=== PATIENT | male | born 1990 | race Caucasian/White ===

== ENCOUNTER 2016-05-28 10:17 | Emergency (ER) | payer BC ==
[2016-05-28 10:43] VITALS: BP 153/98
--- NOTE | 2016-05-28 11:25 | UC ---
Dizzy HPI HPI Summary: 2 NEAR SYNCOPAL EPISODES - 05/15/16 AND 05/26/16. NO PRECEDING INCIDENT OR CLEAR TRIGGERING EVENT. ON BOTH OCCASIONS PT WAS OUTSIDE GETTING INTO HIS CAR TO GO TO WORK IN THE EVENING. ALL OF A SUDDEN PT FELT LIGHTHEADED, FLUSHED/WARM, VISION WENT BLURRY AND HE HAD TO SIT DOWN AGAINST HIS CAR. NO ACTUAL LOC. NO HEAD INJURY. HEART WAS BEATING FAST. HAD SOME MILD URI SX DURING THE FIRST EPISODE BUT NOT FOR THE SECOND. TODAY FEELS WELL. COULD NOT GET APPT WITH PCP. - History Of Current Complaint Chief Complaint: UCGeneralIllness Stated Complaint: HEAD PRESSURE Time Seen by Provider: 05/28/16 11:11 Hx Obtained From: Patient Onset/Duration: Sudden Onset, Lasting Minutes, Resolved Severity Initially: Moderate Severity Currently: None Pain Intensity: 0 Pain Scale Used: 0-10 Numeric Character: Dizzy Aggravating Factor(s): Nothing Associated Signs And Symptoms: Positive: Palpitations, Unsteady Gait, Visual Changes - Allergies/Home Medications Allergies/Adverse Reactions: Allergies Allergy/AdvReac Type Severity Reaction Status Date / Time No Known Allergies Allergy Verified 05/28/16 10:35 Home Medications: Home Medications Cetirizine* [ZyrTEC*] 10 mg PO DAILY 05/28/16 [History Confirmed 05/28/16] PMH/Surg Hx/FS Hx/Imm Hx Previously Healthy: Yes Endocrine History Of: Denies: Diabetes, Thyroid Disease Cardiovascular History Of: Denies: Cardiac Disorders, Hypertension Respiratory History Of: Denies: COPD, Asthma GI/ History Of: Denies: Ulcer - Surgical History Surgical History: Yes Surgery Procedure, Year, and Place: Jaw Implant 2014; T/A as child - Family History Known Family History: Positive: None Negative: Hypertension Family History: no cardio-vascular issues in family lineage - Social History Alcohol Use: Occasionally Substance Use Type: None Smoking Status (MU): Never Smoked Tobacco - Immunization History Most Recent Influenza Vaccination: Not UTD Most Recent Tetanus Shot: UNSURE OF Review of Systems Constitutional: Negative Eyes: Blurred Vision ENT: Negative Respiratory: Negative Cardiovascular: Negative Neurovascular: Other - DIZZY All Other Systems Reviewed And Are Negative: Yes Physical Exam Triage Information Reviewed: Yes Appearance: Well-Appearing, No Pain Distress, Well-Nourished Vital Signs: Initial Vital Signs Temp 99.1 F 05/28/16 10:36 Pulse 89 05/28/16 10:36 Resp 16 05/28/16 10:36 BP 153/98 05/28/16 10:36 Pulse Ox 100 05/28/16 10:36 Vital Signs Reviewed: Yes Eyes: Positive: Conjunctiva Clear ENT: Positive: Hearing grossly normal, Pharynx normal, Other: - RIGHT TM NORMAL. LEFT TM OBSTRUCTED BY CERUMEN Neck: Positive: Supple, Nontender, No Lymphadenopathy Respiratory Exam: Normal Cardiovascular Exam: Normal Abdomen Description: Positive: Soft Musculoskeletal: Positive: No Edema Neurological: Positive: Alert Psychological: Positive: Age Appropriate Behavior Skin: Negative: rashes Diagnostics - EKG Cardiac Rate: NL - 63 BPM Cardiac Rhythm: Sinus: Normal Ectopy: None ST Segment: Normal Dizzy Course/Dx - Course Course Of Treatment: AFTER IRRIGATION OF LEFT EAR, SLIGHT BLOODY OOZING FROM POSTERIOR EAC WALL. TM APPEARS IRREGULAR BUT INTACT. - Differential Dx/Diagnosis Provider Diagnoses: 1. NEAR SYNCOPE. 2. LEFT OTITIS EXTERNA Discharge - Discharge Plan Condition: Stable Disposition: HOME Prescriptions: Neomyc/Polym/HC 1% OTIC SUSP* [Cortisporin Otic Susp 1%*] 4 drop LEFT EAR TID # 1 btl Patient Education Materials: Otitis Externa (ED), Near Syncope (ED) Forms: *Work Release Referrals: Yeni Singh MD [Medical Doctor] - 5 Days Additional Instructions: FOLLOW-UP WITH DR. SINGH FOR A WORK-UP OF YOUR PRESYNCOPAL EPISODES. YOU WILL LIKELY NEED LAB WORK AND STUDIES SUCH AN ECHOCARDIOGRAM TO EVALUATE YOUR HEART FUNCTION. EKG TODAY WAS UNREMARKABLE. BE SURE TO STAY WELL RESTED AND HYDRATED. EAT REGULAR, WELL BALANCED MEALS. GO TO THE ER WITHOUT FAIL IF YOU DEVELOP CHEST PAIN, SHORTNESS OF BREATH OR ANY OTHER CONCERNING SYMPTOMS. YOUR LEFT EAR WAS IRRIGATED TODAY FOR WAX. YOU HAD SOME SLIGHT BLOODY DRAINAGE AND YOUR EAR DRUM LOOKED IRREGULAR BUT INTACT. FOLLOW-UP WITH YOUR PCP FOR RECHECK NEXT WEEK. IF YOUR SYMPTOMS DO NOT IMPROVE YOU MAY BENEFIT FROM ENT EVALUATION. [facility] [phone]
== END 2016-05-28 12:30 | disposition home or self-care (01) ==
LOC: UCEAST 10:17
DX: R55 Syncope and collapse (principal); H60.92 Unspecified otitis externa, left ear
CPT/HCPCS: 93005; 99213; G0463

== ENCOUNTER 2016-05-30 12:05 | Emergency (ER) | payer BC ==
[2016-05-30 12:18] VITALS: BP 148/76
--- NOTE | 2016-05-30 13:06 | UC ---
Ear Complaint HPI - HPI Summary HPI Summary: LEFT EAR PAIN FOR FOUR DAYS, SEEN ON 05/28/16. GIVEN EAR DROPS. PAIN AND HEARING LOSS SEEM TO BE WORSENING. - History of Current Complaint Chief Complaint: UCEar Stated Complaint: EAR CLOGGED Time Seen by Provider: 05/30/16 12:18 Hx Obtained From: Patient Onset/Duration: Gradual Onset, Lasting Days, Still Present Pain Intensity: 0 Pain Scale Used: 0-10 Numeric Associated Signs/Symptoms: Positive: Hearing Loss, Swelling @, URI Symptoms - Allergies/Home Medications Allergies/Adverse Reactions: Allergies Allergy/AdvReac Type Severity Reaction Status Date / Time No Known Allergies Allergy Verified 05/30/16 12:12 PMH/Surg Hx/FS Hx/Imm Hx Previously Healthy: Yes Endocrine History Of: Denies: Diabetes, Thyroid Disease Cardiovascular History Of: Denies: Cardiac Disorders, Hypertension Respiratory History Of: Denies: COPD, Asthma GI/ History Of: Denies: Ulcer - Surgical History Surgical History: Yes Surgery Procedure, Year, and Place: Jaw Implant 2014; T/A as child - Family History Known Family History: Positive: None Negative: Hypertension Family History: no cardio-vascular issues in family lineage - Social History Occupation: Employed Full-time Lives: With Family Alcohol Use: Occasionally Substance Use Type: None Smoking Status (MU): Never Smoked Tobacco - Immunization History Most Recent Influenza Vaccination: Not UTD Most Recent Tetanus Shot: UNSURE OF Review of Systems Constitutional: Negative Skin: Negative Eyes: Negative ENT: Ear Ache Respiratory: Negative Cardiovascular: Negative Gastrointestinal: Negative Genitourinary: Negative Motor: Negative Neurovascular: Negative Musculoskeletal: Negative Neurological: Negative Psychological: Negative All Other Systems Reviewed And Are Negative: Yes Physical Exam Triage Information Reviewed: Yes Appearance: Well-Appearing, No Pain Distress, Well-Nourished Vital Signs: Initial Vital Signs Temp 98.2 F 05/30/16 12:14 Pulse 72 05/30/16 12:14 Resp 18 05/30/16 12:14 BP 148/76 05/30/16 12:14 Pulse Ox 99 05/30/16 12:14 Vital Signs Reviewed: Yes Eye Exam: Normal Eyes: Positive: Conjunctiva Clear ENT: Positive: Nasal congestion, TM bulging, TM dull, TM red, Other: - EDEMA ERRETHEMA LEFT EAC Dental Exam: Normal Neck exam: Normal Respiratory Exam: Normal Respiratory: Positive: Chest non-tender, Lungs clear, Normal breath sounds, No respiratory distress, No accessory muscle use Cardiovascular Exam: Normal Cardiovascular: Positive: RRR, No Murmur, Pulses Normal Abdominal Exam: Normal Abdomen Description: Positive: Nontender, No Organomegaly Musculoskeletal Exam: Normal Musculoskeletal: Positive: Strength Intact, ROM Intact Neurological Exam: Normal Psychological Exam: Normal Skin Exam: Normal Ear Complaint Course/Dx - Differential Dx/Diagnosis Differential Diagnosis/HQI/PQRI: Otitis Externa, Otitis Media Provider Diagnoses: OTITS EXTERNA. SINUSITIS Discharge - Discharge Plan Condition: Stable Disposition: HOME Prescriptions: Amoxicillin/Clavulanate TAB* [Augmentin TAB 875*] 875 mg PO BID #20 tab Patient Education Materials: Sinusitis (ED), Otitis Externa (ED) Referrals: Non Staff,Doctor [Primary Care Provider] -
== END 2016-05-30 13:09 | disposition home or self-care (01) ==
LOC: UCEAST 12:05
DX: H60.92 Unspecified otitis externa, left ear (principal); J32.9 Chronic sinusitis, unspecified
CPT/HCPCS: 99211; G0463

== ENCOUNTER 2017-04-06 21:41 | Emergency (ER) | payer BC ==
[2017-04-06] MEDS ORDERED: Sulfamethox/Trimethoprim DS 800/160* TAB PO ONE (22:58)
[2017-04-06] MEDS ORDERED: HYDROcodone/ACETAMIN 5-325 MG* 1 TAB PO ONE (22:58)
[2017-04-06 23:17] VITALS: BP 122/80
--- NOTE | 2017-04-06 23:20 | UC ---
Skin Complaint HPI - HPI Summary HPI Summary: ONSET OF PAIN AND SWELLING AND BLOODY DISCHARGE FROM INTERGLUTEAL CLEFT THIS EVENING. NO FEVER. - History of Current Complaint Chief Complaint: UCGeneralIllness Time Seen by Provider: 04/06/17 22:34 Stated Complaint: ANAL BLEEDING Hx Obtained From: Patient Onset/Duration: Still Present Timing: Constant Onset Severity: Moderate Current Severity: Moderate Pain Intensity: 6 Pain Scale Used: 0-10 Numeric Location: Discrete - PROXIMAL INTERGLUTEAL CLEFT Character: Pain, Redness Aggravating Factor(s): Touch Alleviating Factor(s): Nothing Associated Signs & Symptoms: Positive: Tenderness - Allergy/Home Medications Allergies/Adverse Reactions: Allergies Allergy/AdvReac Type Severity Reaction Status Date / Time No Known Allergies Allergy Verified 04/06/17 21:50 Home Medications: Home Medications Diphenhydramine HCl [Benadryl Allergy 25 MG CAP] 25 mg PO BID 04/06/17 [History Confirmed 04/06/17] Review of Systems Constitutional: Negative Skin: Other - PAINFUL LUMP INTERGLUTEAL CLEFT Respiratory: Negative Cardiovascular: Negative Gastrointestinal: Negative All Other Systems Reviewed And Are Negative: Yes PMH/Surg Hx/FS Hx/Imm Hx Previously Healthy: Yes - Surgical History Surgical History: Yes Surgery Procedure, Year, and Place: Jaw Implant 2014; T/A as child - Family History Known Family History: Positive: None Negative: Hypertension Family History: no cardio-vascular issues in family lineage - Social History Alcohol Use: Occasionally Substance Use Type: None Smoking Status (MU): Never Smoked Tobacco - Immunization History Most Recent Influenza Vaccination: Not UTD Most Recent Tetanus Shot: UNSURE OF Physical Exam Triage Information Reviewed: Yes Appearance: Well-Appearing, No Pain Distress, Well-Nourished Vital Signs: Initial Vital Signs Temp 99.1 F 04/06/17 21:47 Pulse 86 04/06/17 21:47 Resp 20 04/06/17 21:47 BP 145/77 04/06/17 21:47 Pulse Ox 100 04/06/17 21:47 Vital Signs Reviewed: Yes Eyes: Positive: Conjunctiva Clear ENT: Positive: Hearing grossly normal Neck: Positive: Supple Respiratory: Positive: No respiratory distress, No accessory muscle use Cardiovascular: Positive: Pulses Normal Abdomen Description: Positive: Soft Musculoskeletal: Positive: No Edema Neurological: Positive: Alert Psychological: Positive: Age Appropriate Behavior Skin: Positive: Other - TENDERNESS, INDURATION, ERYTHEMA PROXIMAL INTERGLUTEAL CLEFT WITH PUNCTATE WHITE HEAD X 2 IN CENTRAL LOCATION. NO FLUCTUANCE Course/Dx - Course Course Of Treatment: 18 GAUGE NEEDLE USED TO PUNCTURE ESQUIVEL. BLOODY PUS EXPRESSED. SPECIMEN SENT FOR CULTURE. BACTRIM. HOT SOAKS. F/U IF NEEDED. - Diagnoses Provider Diagnoses: PILONIDAL ABSCESS Discharge - Discharge Plan Condition: Stable Disposition: HOME Prescriptions: HYDROcodone/ACETAMIN 5-325 MG* [[place] 5-325 TAB*] 1 tab PO Q6H PRN #15 tab MDD 4 PRN Reason: Pain Sulfamethox/Trimethoprim DS* [Bactrim DS 800/160 TAB*] 1 tab PO BID #19 tab Patient Education Materials: Pilonidal Cyst (ED) Forms: *Work Release Referrals: Yeni Mcintosh MD [Primary Care Provider] - If Needed Additional Instructions: WARM/HOT COMPRESSES/SOAKS AT LEAST 4 TIMES DAILY SPECIMEN SENT FOR CULTURE TAKE ANTIBIOTICS FOR FULL COURSE. IBUPROFEN FOR PAIN. HYDROCODONE/APAP FOR BREAKTHROUGH. SEEK FOLLOW-UP IF NOT IMPROVING EXPECTED OVER THE NEXT FEW DAYS. VASOVAGAL SYNCOPE What is syncope? Syncope is the medical term for fainting. After fainting, a person quickly comes to and is OK again. Syncope is very common. About 1 out of every 3 people has it at some point in life. In many cases, syncope is nothing to worry about. What causes syncope? Syncope happens when the brain temporarily doesnt get enough blood. One of the most common reasons this happens is called vasovagal syncope. If you have vasovagal syncope, your body has a reaction in which your heart beats too slowly or your blood vessels expand (or both). This can happen for lots of different kinds of reasons. People can have vasovagal syncope if they: -Have stress from fear or pain (for example, because they are injured or have blood taken for tests) -Stand for too long or are over-tired or overheated -Have an unusual reaction to urinating, coughing, or other body functions Sometimes vasovagal syncope happens with no clear cause. People can also have syncope that is not vasovagal. This can happen due to the following problems: -The heart beats too quickly or too slowly because of problems with the hearts electrical system or because of side effects from some medicines. -Something blocks the flow of blood in the heart. This can happen in people who have conditions called aortic stenosis (a valve disease) or hypertrophic cardiomyopathy (a heart muscle disease). -Your blood pressure drops when you stand or sit up. That can happen if you: Do not drink enough water Take certain medicines that cause your blood pressure to drop Drink alcohol Lose a lot of blood (for example, if you get hurt) Have a medical condition that affects your blood pressure Is syncope dangerous? In many cases it is not dangerous. But it can be dangerous if you fall and hurt yourself when you faint. It can also be dangerous if you faint while driving. To be safe, check with your doctor or nurse before you start driving again after you faint. Should I see a doctor or nurse? Yes. Anyone who faints should see a doctor or nurse. Most cases of syncope are not serious. But people can get hurt when they faint. Plus, in some cases syncope is caused by a serious medical condition that should be treated. Knowing what caused you to faint can help you prevent it from happening again. Tell your doctor or nurse what happened before, during, and after you fainted. If someone was with you when you fainted, that person might be able to tell you what happened. The following information is helpful: -What were you doing before you passed out? -How were you feeling before you passed out? -How long were you passed out? -How well did you recover? -Any past history of fainting? -A list of the medicines you take -Any medical conditions you might have Your doctor or nurse will ask you a few questions and do an exam. During the exam, the doctor or nurse might: -Check your blood pressure and heart rate when you are lying down, sitting, or standing -Listen to your heart to check whether something might be wrong with your heart valves or heart muscle Will I need tests? Probably not. Many people who faint need no tests - especially if they faint only once. If your doctor decides you do need tests, the tests could include one or more of the following: -Electrocardiogram (ECG or EKG) For this test, your doctor will put sticky pads on your chest, belly, arms, and legs. Long, thin wires connect the pads to a machine. The device records the electrical activity in your heart. This can show if the pattern of your heartbeats is abnormal. -Carotid sinus massage For this test, a doctor presses on a blood vessel in your neck while watching your electrocardiogram. This can show if your blood vessel is too sensitive to pressure. -Echocardiogram (also called an echo) This test uses sound waves to create an image of the heart. It allows the doctors to measure the adorno and chambers of the heart, see how the heart is pumping and check how the heart valves are working. Heart valves are flaps of tissue that open and close like swinging doors. They help keep blood moving in one direction. -Home heart monitor For home monitoring, you might wear or carry a device around at home. You will keep doing normal activities. One type of monitor records all your heart beats for 1 or 2 days. With others, you push a button to record heart beats when you feel symptoms. -Tilt table test For this test, you lie flat on a table. Your doctor then monitors your heartbeats and blood pressure while your body is tilted with your head up
== END 2017-04-06 23:22 | disposition home or self-care (01) ==
LOC: UCEAST 21:41
DX: L05.01 Pilonidal cyst with abscess (principal)
CPT/HCPCS: 10060; 87070; 87077; 87186; 87205; 99212; A9270-GY; G0463

== ENCOUNTER 2017-04-11 18:01 | Emergency (ER) | payer BC ==
[2017-04-11] MEDS ORDERED: DOXYcycline CAP(*) 100 MG PO ONE ×2 (18:53)
[2017-04-11 19:39] VITALS: BP 136/70
--- NOTE | 2017-04-11 19:40 | ED ---
Skin Complaint - HPI Summary HPI Summary: Pt here w/ persistent wound in gluteal crevice region. Was seen Tuesday at [facility] and dx'd w/ pilonidal cyst. Started on bactrim and pt reports he was not getting better with this, in fact felt worse - intermittent fever, chills and area was quite painful. This wound ruptured however on Tuesday and pain has improved greatly since (ie. hasn't needed norco) - no fever or chills since. Here today as she was concerned it's not getting better (ie. still draining). Reviewed [facility] report and he has + strep intermedius and + staph lugdenensis , neither of which are sensitive to bactrim. 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 Pain Intensity: 3 - Allergy/Home Medications Allergies/Adverse Reactions: Allergies Allergy/AdvReac Type Severity Reaction Status Date / Time No Known Allergies Allergy Verified 04/11/17 19:40 PMH/Surg Hx/FS Hx/Imm Hx Previously Healthy: No - pilonidal cyst Endocrine/Hematology History: Denies: Hx Diabetes, Hx Thyroid Disease, Autoimmune Disease Cardiovascular History: Denies: Hx Hypertension Respiratory History: Denies: Hx Asthma, Hx Chronic Obstructive Pulmonary Disease (COPD) GI History: Denies: Hx Ulcer - Surgical History Surgery Procedure, Year, and Place: Jaw Implant 2014; T/A as child - Immunization History Immunizations Up to Date: Yes Infectious Disease History: No Infectious Disease History: Denies: Hx Clostridium Difficile, Hx Hepatitis, Hx Human Immunodeficiency Virus (HIV), Hx of Known/Suspected MRSA, Hx Shingles, Hx Tuberculosis, Hx Known/ Suspected VRE, Hx Known/Suspected VRSA, History Other Infectious Disease, Traveled Outside the [place] in Last 30 Days - Family History Known Family History: Positive: None Negative: Hypertension Family History: no cardio-vascular issues in family lineage - Social History Occupation: Employed Full-time Lives: With Family Alcohol Use: Occasionally Hx Substance Use: No Substance Use Type: Reports: None Hx Tobacco Use: No Smoking Status (MU): Never Smoked Tobacco Review of Systems Negative: Fever, Chills, Fatigue Cardiovascular: Negative Negative: Palpitations, Chest Pain Respiratory: Negative Negative: Shortness Of Breath Gastrointestinal: Negative Negative: Abdominal Pain, Vomiting, Diarrhea, Nausea Positive: no symptoms reported Musculoskeletal: Negative Skin: Other - wound Neurological: Negative Psychological: Normal All Other Systems Reviewed And Are Negative: Yes Physical Exam Triage Information Reviewed: Yes Vital Signs On Initial Exam: Initial Vitals Temp Pulse Resp BP Pulse Ox 96.7 F 88 17 125/55 99 04/11/17 18:05 04/11/17 18:05 04/11/17 18:05 04/11/17 18:05 04/11/17 18:05 Vital Signs Reviewed: Yes Appearance: Positive: Well-Appearing, No Pain Distress, Well-Nourished Skin: Positive: Warm - focal well defined erythema w/ edema with central draining openings just superior to gluteal cleft - drainage is purulent - no streaking, appears localized Head/Face: Positive: Normal Head/Face Inspection Eyes: Positive: Normal, EOMI ENT: Positive: Hearing grossly normal, Pharynx normal - mucosa moist Respiratory/Lung Sounds: Positive: Breath Sounds Present Abdomen Description: Positive: Soft Bowel Sounds: Positive: Present Musculoskeletal: Positive: Normal, Strength/ROM Intact Neurological: Positive: Normal, Sensory/Motor Intact, Alert, Oriented to Person Place, Time, CN Intact II-III Psychiatric: Positive: Normal - appears well, good energy, pleasant, knowledgable about progress of wound and associated sx - [place] Coma Scale Coma Scale Total: 15 Diagnostics - Vital Signs Vital Signs Temp Pulse Resp BP Pulse Ox 04/11/17 18:05 96.7 F 88 17 125/55 99 - Laboratory Lab Statement: Any lab studies that have been ordered have been reviewed, and results considered in the medical decision making process. Course/Dx - Diagnoses Provider Diagnoses: Pilonidal abscess Discharge - Discharge Plan Condition: Stable Disposition: HOME Prescriptions: DOXYcycline CAP(*) [DOXYcycline 100MG CAP(*)] 100 mg PO BID #18 cap Patient Education Materials: Pilonidal Cyst (ED) Referrals: Thom Hyatt MD [Medical Doctor] - Additional Instructions: Your antibiotics were changed from bactrim to doxycycline. Stop taking your bactrim and complete the doxycycline as directed. Rest, stay hydrated Your wound is draining - continue warm baths and compresses to encourage continued drainage - if this stops and pain/swelling becomes worse or you develop fever,chills, nausea, vomiting, return to ED Continue pain medications as directed as needed Follow-up with general surgery - contact information provided here - call tomorrow to schedule an appointment.
== END 2017-04-11 19:35 | disposition home or self-care (01) ==
LOC: ED 18:01
DX: L05.01 Pilonidal cyst with abscess (principal); B95.5 Unspecified streptococcus as the cause of diseases classified elsewhere; B95.8 Unspecified staphylococcus as the cause of diseases classified elsewhere
CPT/HCPCS: 99283; A9270-GY